=== PATIENT | male | born 1995 | race Caucasian/White ===

== ENCOUNTER 2019-11-11 19:59 | Emergency (ER) | payer SELFPAY ==
[~2019-11-11] VITALS: Ht 175.3 cm; Wt 124.7 kg
[2019-11-11 20:11] VITALS: Ht 175.3 cm; Wt 124.7 kg
[2019-11-11 21:13] LABS: RED CELL DISTRIBUTION WIDTH 13.3 % (11.5-14.5)
[2019-11-11 21:15] LABS: BASOPHIL % 2.1 % (0-2); PLATELET COUNT 422 x10^3mcL (130-400)
[2019-11-11 22:05] VITALS: BP 111/68
== END 2019-11-11 22:05 | disposition home or self-care (01) ==
LOC: ED 19:59
PROVIDERS: Emergency Medicine
DX: M54.30 Sciatica, unspecified side (principal)
CPT/HCPCS: 36415; Q0092